=== PATIENT | male | born 1950 | race Native Hawaiian/Other Pacific Islander ===

== ENCOUNTER 2017-05-01 03:18 | Emergency (ER) | payer OTHER ==
[~2017-05-01] VITALS: Ht 180.3 cm; Wt 108.9 kg
[2017-05-01 03:41] LABS: PLATELET COUNT 211 K/uL (142-355)
[2017-05-01] MEDS ORDERED: PHENYTOIN EX100 MG OR (03:54)
[2017-05-01] MEDS ORDERED: FURO40TA93 PO (03:55)
[2017-05-01] MEDS ORDERED: WARF2.5T8 PO (03:55)
[2017-05-01] MEDS ORDERED: FENOFIBRATE200 MG PO (03:56)
[2017-05-01] MEDS ORDERED: NITROSTAT0.4 MG SL (03:57)
[2017-05-01] MEDS ORDERED: [UNRECOGNIZED DRUG - OTHER] OR (03:57)
[2017-05-01] MEDS ORDERED: NIACIN TR1000 MG OR (03:58)
[2017-05-01] MEDS ORDERED: COZAAR25 MG PO (03:59)
[2017-05-01] MEDS ORDERED: CARV12.5 PO (03:59)
[2017-05-01 04:00] LABS: PARTIAL THROMBOPLASTIN TIME 34.7 SECONDS (24.5-33.6)
[2017-05-01] MEDS ORDERED: ZOCOR80 MG OR (04:00)
[2017-05-01] MEDS ORDERED: KLOR-CON M2020 MEQ OR (04:00)
[2017-05-01] MEDS ORDERED: D35000 UNIT OR (04:00)
[2017-05-01 06:37] VITALS: BP 140/92
== END 2017-05-01 06:45 | disposition home or self-care (01) ==
LOC: ED 03:18
DX: R07.89 Other chest pain (principal); K80.80 Other cholelithiasis without obstruction; I48.91 Unspecified atrial fibrillation
CPT/HCPCS: 80053; 82550; 83880; 84484; 85027; 85379; 85610; 85730; 93005; 99284; J1650; J1885; J2270

== ENCOUNTER 2018-03-05 11:06 | Emergency (ER) | payer OTHER ==
[2018-03-05 11:06] VITALS: TEMP 97.5
[~2018-03-05 11:06] MED LIST: CARV12.5 PO; COZAAR25 MG PO; D35000 UNIT OR; FENOFIBRATE200 MG PO; FURO40TA93 PO; KLOR-CON M2020 MEQ OR; NIACIN TR1000 MG OR; NITROSTAT0.4 MG SL; PHENYTOIN EX100 MG OR; WARF2.5T8 PO; ZOCOR80 MG OR; [UNRECOGNIZED DRUG - OTHER] OR
[2018-03-05] MEDS ORDERED: ASPIRIN 81 LOW81 MG PO (11:23)
[2018-03-05 11:39] LABS: PLATELET COUNT 243 K/uL (142-355)
[2018-03-05 11:43] LABS: POTASSIUM 4.4 mmol/L (3.6-5.2); SODIUM 141 mmol/L (136-145)
[2018-03-05 12:01] LABS: PARTIAL THROMBOPLASTIN TIME 33.6 SECONDS (24.5-33.6)
[2018-03-05 14:00] VITALS: BP 121/79
== END 2018-03-05 14:15 | disposition short-term general hospital (02) ==
LOC: ED 11:08
DX: R42 Dizziness and giddiness (principal); M79.601 Pain in right arm; I99.8 Other disorder of circulatory system; I48.91 Unspecified atrial fibrillation
CPT/HCPCS: 36415; 80053; 82550; 84484; 85027; 85610; 85730; 93005; 96365; 96375; 99285; J1885; J2405

== ENCOUNTER 2018-09-06 14:53 | Outpatient (CLI) | payer OTHER ==
[~2018-09-06 14:53] MED LIST changes: +ASPIRIN 81 LOW81 MG PO
== END 2018-09-06 15:08 | disposition short-term general hospital (02) ==
LOC: AMB 14:53
DX: M54.89 Other dorsalgia (principal)
CPT/HCPCS: A0425; A0427

== ENCOUNTER 2018-09-06 15:12 | Emergency (ER) | payer OTHER ==
[~2018-09-06] VITALS: Ht 180.3 cm; Wt 106.6 kg
[2018-09-06 16:39] VITALS: BP 125/80; TEMP 98
== END 2018-09-06 16:39 | disposition home or self-care (01) ==
LOC: ED 15:12
DX: M54.5 Low back pain (principal); M51.36 Other intervertebral disc degeneration, lumbar region
CPT/HCPCS: 99282

== ENCOUNTER 2019-05-06 09:02 | Outpatient (CLI) | payer OTHER | END 2019-05-06 23:21 | disposition home or self-care (01) | LOC: LABW 09:02 | DX: I48.20 Chronic atrial fibrillation, unspecified (principal); Z79.01 Long term (current) use of anticoagulants | CPT/HCPCS: 36415; 85610 ==